=== PATIENT | female | born 1960 | race Hispanic/Latino ===

== ENCOUNTER 2021-12-18 12:30 | Outpatient (RCR) | payer MEDICARE | END 2021-12-20 | LOC: PT 12:30 | PROVIDERS: ATTEND Physician Assistant | DX: M17.0 Bilateral primary osteoarthritis of knee (principal) ==

== ENCOUNTER 2022-01-04 07:00 | Outpatient (RCR) | payer MEDICARE | END 2022-01-19 | LOC: PT 07:00 | PROVIDERS: ATTEND Physician Assistant | DX: M17.0 Bilateral primary osteoarthritis of knee (principal) ==

== ENCOUNTER → 2023-07-16 | Outpatient (REF) | payer MEDICARE | LOC: NM 11:08 | PROVIDERS: ATTEND Internal Medicine Medical Oncology | DX: D35.1 Benign neoplasm of parathyroid gland (principal) | CPT/HCPCS: 78071; A9512 ==